=== PATIENT | female | born 1980 | race American Indian/Alaskan Native ===

== ENCOUNTER 2019-02-10 22:57 | Emergency (ER) | payer MEDICAID ==
[2019-02-10 23:12] VITALS: BP 149/98
[2019-02-11] MEDS ORDERED: IBUPROFEN 600 MG TAB PO ONE (02:20)
[2019-02-11] MEDS ORDERED: ONDANSETRON 4 MG ODT TAB PO ONE (02:20)
[2019-02-11] MEDS ORDERED: oxyCODONE /ACETAMINOPHEN 5-325MG TAB PO ONE (02:20)
[2019-02-11] MEDS ORDERED: AMOXICILLIN/K CLAV 875/125MG TAB PO ONE (02:20)
--- NOTE | 2019-02-11 02:48 | Emergency Department Report ---
ED General Adult HPI - General Chief complaint: Dental/Oral Stated complaint: MOUTH PAIN/POSS INFECTION Source: patient Mode of arrival: Ambulatory Limitations: No Limitations - History of Present Illness Initial comments: Patient is 38-year-old -[place] female with no past medical history who presents to the ED complaining of acute onset persistent severely painful swo llen left maxillary gums, and premolar and molar toothache for the last 4 days. Patient states that the pain has worsened in the last 2 days especially in the last 12 suspect that she has not been able to sleep because of pain. Patient states that the pain radiates to her right temporal area causing severe headache. Patient denies nausea, vomiting, diarrhea, dizziness, change in vision, sore throat, nasal and sinus congestion, ear pain, hearing loss, traumatic injury, fall, neck pain, chest pain and shortness of breath. MD Complaint: dental pain; swollen gums; headache -: Sudden, days(s) (4) Location: mouth (dental pain with swollen gums) Radiation: non-radiation Severity scale (0 -10): 10 Quality: aching, constant Consistency: constant Improves with: none Worsens with: none Associated Symptoms: denies other symptoms, headaches, loss of appetite. denies: confusion, chest pain, cough, diaphoresis, fever/chills, malaise, nausea/vomiting, rash, seizure, shortness of breath, syncope, weakness, other Treatments Prior to Arrival: none - Related Data Previous Rx's Medication Instructions Recorded Last Taken Type Acetaminophen/Codeine [Tylenol 1 tab PO Q6H PRN #12 tab 02/11/19 Unknown Rx /Codeine # 3 tab] Clindamycin [Clindamycin CAP] 300 mg PO Q8HR #60 capsule 02/11/19 Unknown Rx Ketorolac [Toradol] 10 mg PO Q8H PRN #20 tablet 02/11/19 Unknown Rx Allergies Allergy/AdvReac Type Severity Reaction Status Date / Time No Known Allergies Allergy Unverified 02/11/19 02:37 ED Review of Systems ROS: Stated complaint: MOUTH PAIN/POSS INFECTION Other details as noted in HPI Constitutional: denies: chills, fever Eyes: denies: eye pain, eye discharge, vision change ENT: dental pain, other (swollen gums and pain). denies: ear pain, throat pain Respiratory: denies: cough, shortness of breath, wheezing Cardiovascular: denies: chest pain, palpitations Endocrine: no symptoms reported Gastrointestinal: denies: abdominal pain, nausea, diarrhea Genitourinary: denies: urgency, dysuria, discharge Musculoskeletal: denies: back pain, joint swelling, arthralgia Skin: denies: rash, lesions Neurological: headache. denies: weakness, paresthesias Psychiatric: denies: anxiety, depression Hematological/Lymphatic: denies: easy bleeding, easy bruising ED Past Medical Hx - Past Medical History Previous Medical History?: No - Surgical History Past Surgical History?: Yes Additional Surgical History: B/L foot - Social History Smoking Status: Former Smoker Substance Use Type: None - Medications Home Medications: Home Medications Medication Instructions Recorded Confirmed Last Taken Type Acetaminophen/Codeine [Tylenol 1 tab PO Q6H PRN #12 tab 02/11/19 Unknown Rx /Codeine # 3 tab] Clindamycin [Clindamycin CAP] 300 mg PO Q8HR #60 capsule 02/11/19 Unknown Rx Ketorolac [Toradol] 10 mg PO Q8H PRN #20 tablet 02/11/19 Unknown Rx ED Physical Exam - General Limitations: No Limitations General appearance: alert, in no apparent distress - Head Head exam: Present: atraumatic, normocephalic, normal inspection - Eye Eye exam: Present: normal appearance, PERRL, EOMI - ENT ENT exam: Present: mucous membranes moist, TM's normal bilaterally, normal external ear exam, other (swollen right maxillary gums with diffuse dental caries and severely tender premolar and molar teeth) - Neck Neck exam: Present: normal inspection, full ROM, lymphadenopathy. Absent: tenderness, meningismus, thyromegaly - Respiratory Respiratory exam: Present: normal lung sounds bilaterally. Absent: respiratory distress, wheezes, rales, rhonchi, stridor, chest wall tenderness, accessory muscle use, decreased breath sounds, prolonged expiratory - Cardiovascular Cardiovascular Exam: Present: regular rate, normal rhythm, normal heart sounds. Absent: systolic murmur, diastolic murmur, rubs, gallop - GI/Abdominal GI/Abdominal exam: Present: soft, normal bowel sounds. Absent: tenderness, rebound, hyperactive bowel sounds, hypoactive bowel sounds, organomegaly, mass - Extremities Exam Extremities exam: Present: normal inspection, full ROM, normal capillary refill - Back Exam Back exam: Present: normal inspection, full ROM. Absent: muscle spasm, paraspinal tenderness, vertebral tenderness - Neurological Exam Neurological exam: Present: alert, oriented X3, CN II-XII intact, normal gait - Psychiatric Psychiatric exam: Present: normal affect, normal mood - Skin Skin exam: Present: warm, dry, intact, normal color. Absent: rash ED Course Vital Signs 02/10/19 23:08 Temperature 98.3 F Pulse Rate 90 Respiratory 14 Rate Blood Pressure 149/98 O2 Sat by Pulse 99 Oximetry ED Medical Decision Making - Medical Decision Making This is a 38-year-old female who presented to ED with right maxillary gum pain and swelling with premolar and molar toothache for the last 4 days. In the ED, patient is alert and oriented 3 and is not in distress with normal vital signs. Patient however appears to be in pain as she cries during the physical exam. Patient was treated for pain and also given oral antibiotics in the ED, and was discharged home on pain medications and antibiotics and advised to follow-up with a dentist or a primary care physician at [facility] 5-7 days for reevaluation. Patient was advised to return to the ED immediately if symptoms get worse. - Differential Diagnosis dental abscess; dental caries; gingivitis Critical care attestation.: If time is entered above; I have spent that time in minutes in the direct care of this critically ill patient, excluding procedure time. ED Disposition Clinical Impression: Dental abscess, Chronic gingivitis Tension type headache Qualifiers: Headache chronicity pattern: unspecified pattern Intractability: not intractable Qualified Code(s): G44.209 - Tension-type headache, unspecified, not intractable Disposition: - TO HOME OR SELFCARE Is pt being admited?: No Does the pt Need Aspirin: No Condition: Stable Instructions: Dental Abscess (ED), Gingivitis (ED) Additional Instructions: Take medications with food, drink plenty of fluids and follow-up with your primary care physician in 7-10 days for reevaluation. Return to the ED immediately if symptoms get worse. Prescriptions: Clindamycin [Clindamycin CAP] 300 mg PO Q8HR #60 capsule Ketorolac [Toradol] 10 mg PO Q8H PRN #20 tablet PRN Reason: Pain Acetaminophen/Codeine [Tylenol /Codeine # 3 tab] 1 tab PO Q6H PRN #12 tab PRN Reason: Pain , Severe (7-10) Referrals: PRIMARY CARE,MD [Primary Care Provider] - 3-[address] [facility] [Outside] - 3-5 Days Time of Disposition: 02:45 Print Language: [place]
== END 2019-02-11 03:07 | disposition home or self-care (01) ==
LOC: ED 22:57
DX: K04.7 Periapical abscess without sinus (principal); K05.10 Chronic gingivitis, plaque induced; G44.209 Tension-type headache, unspecified, not intractable; Z87.891 Personal history of nicotine dependence; Z79.899 Other long term (current) drug therapy
CPT/HCPCS: Q0162

== ENCOUNTER 2020-10-18 21:50 | Emergency (ER) | payer MEDICAID | END 2020-10-18 21:55 | disposition left against medical advice (07) | LOC: ED 21:50 | DX: O26.891 Other specified pregnancy related conditions, first trimester (principal); R10.30 Lower abdominal pain, unspecified; Z3A.08 8 weeks gestation of pregnancy; Z53.21 Procedure and treatment not carried out due to patient leaving prior to being seen by health care provider ==

== ENCOUNTER 2020-10-30 13:02 | Emergency (ER) | payer MEDICAID | END 2020-10-30 18:35 | disposition left against medical advice (07) | LOC: ED 13:02 | DX: J02.9 Acute pharyngitis, unspecified (principal); Z53.21 Procedure and treatment not carried out due to patient leaving prior to being seen by health care provider ==